=== PATIENT | female | born 1960 | race Caucasian/White ===

== ENCOUNTER 2018-01-27 12:09 | Emergency (ER) | payer BC, OTHER ==
[2018-01-27 13:27] VITALS: BP 109/58
--- NOTE | 2018-01-27 13:32 | ED ---
Complex/Multi-Sys Presentation - HPI Summary HPI Summary: This is azucena Barraza documenting for attending Antonella Roblero M.D. This patient is a 58 year old F presenting to [facility] accompanied by coworker at [facility] with a chief complaint of possible CuCN exposure since 814 today. 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 Pt entered apartment and found a man who had poisoned himself with copper cyanide in the apartment, and this patient worries about possible illness or adverse effects from possible exposure to the copper cyanide. Pt did not touch the suicide patient. [place] [employer] was also present at the apartment with [place] police and [employer] determined that the suicide pt was safe to enter [facility] without prior decontamination based on the substances recovered in the apartment that this pt owns and entered. This Pt denies any current sx. She denies nausea, SALVADOR, vision changes, emesis, dizziness. FHx: hereditary spherocytosis. PMHx splenectomy, hereditary spherocytosis. - History Of Current Complaint Chief Complaint: EDExposureBodyFluid Time Seen by Provider: 01/27/18 12:41 Hx Obtained From: Patient, Other: - [place] [employer], poison control Onset/Duration: Sudden Onset, Lasting Minutes Timing: Constant, Minutes Severity Currently: None Severity Initially: Mild - not mild, none Location: Negative Aggravating Factor(s): Possible CuCN exposure Alleviating Factor(s): nothing Associated Signs And Symptoms: Negative: Dizziness, Headache, Nausea, Vomiting - Allergies/Home Medications Allergies/Adverse Reactions: Allergies Allergy/AdvReac Type Severity Reaction Status Date / Time No Known Allergies Allergy Verified 06/03/16 10:23 Home Medications: Home Medications ValACYclovir (*) [Valtrex 500 mg (*)] 500 mg PO DAILY 01/27/18 [History Confirmed 01/27/18] PMH/Surg Hx/FS Hx/Imm Hx Endocrine/Hematology History: Reports: Hx Blood Disorders - hereditary spherocytosis Denies: Hx Sickle Cell Disease History: Denies: Hx Dialysis Sensory History: Denies: Hx Legally Blind, Hx Deafness Opthamlomology History: Denies: Hx Legally Blind EENT History: Denies: Hx Deafness - Cancer History Hx Chemotherapy: No Hx Radiation Therapy: No - Surgical History Surgery Procedure, Year, and Place: splenectomy for hereditary spherocytosis Infectious Disease History: No Infectious Disease History: Denies: Traveled Outside the [place] in Last 30 Days - Family History Known Family History: Positive: Blood Disorder - hereditary spherocytosis, Other - colon cancer - Social History Occupation: Employed Full-time Alcohol Use: Occasionally Substance Use Type: Reports: None Smoking Status (MU): Never Smoked Tobacco Review of Systems Negative: Fever Negative: Photophobia, Blurred Vision Cardiovascular: Negative Respiratory: Negative Negative: Vomiting, Nausea Positive: no symptoms reported Skin: Negative Neurological: Other - NEGATIVE: dizziness Negative: Headache Psychological: Normal All Other Systems Reviewed And Are Negative: Yes Physical Exam - Summary Physical Exam Summary: Appearance: Well-appearing, no pain distress, well-nourished Skin: Warm, color reflects adequate perfusion, dry Head: Normal Head/Face inspection, atraumatic Eyes: Conjunctiva clear ENT: Normal inspection Neck: Supple, no nodes, no JVD Respiratory: Lungs clear, normal breath sounds, no respiratory distress Cardio: RRR, No murmur, pulses normal, brisk capillary refill Abdomen: Soft, nontender Bowel sounds: Present Musculoskeletal: Strength Intact/ROM intact, no calf tenderness, no edema. Psychological: Normal Neuro: Alert, muscle tone normal, no focal deficit Triage Information Reviewed: Yes Vital Signs On Initial Exam: Initial Vitals Temp Pulse Resp BP Pulse Ox 98 F 62 16 104/48 98 01/27/18 12:37 01/27/18 12:37 01/27/18 12:37 01/27/18 12:37 01/27/18 12:37 Vital Signs Reviewed: Yes Diagnostics - Vital Signs Vital Signs Temp Pulse Resp BP Pulse Ox 01/27/18 12:37 98 F 62 16 104/48 98 - Laboratory Lab Statement: Any lab studies that have been ordered have been reviewed, and results considered in the medical decision making process. Complex Multi-Symp Course/Dx Course Of Treatment: 58 yo F s/p splenectomy for hx hereditary spherocytosis ( immunocompromised) presents for evaluation after she entered an apartment that she owns in response to an emergency call from that apartment occupant's mother when there was no response at the door, and she found a man who had ingested what poison control and [place] [employer] determined was copper cyanide. Due to her immunosuppressed status and possible exposure to cyanide, pt sought medical evaluation in this ED. Based on her history and the exam performed in the ED and information from the [place] [employer] who tested substances found in the apartment patient owns and entered, and information from [place] poison control (Smita RN and Dr. Moreno, animal stunner), in conjunction with clinical judgement, it is determined that pt did not have a toxic exposure, and needs no further evaluation or treatment at this time. - Diagnoses Differential Diagnoses/HQI/PQRI: Metabolic Abnormality, Other - toxic exposure to copper cyanide Provider Diagnoses: Normal exam, Exposure to chemical compounds Discharge - Sign-Out/Discharge Documenting (check all that apply): Patient Departure - discharge - Discharge Plan Condition: Stable Disposition: HOME Patient Education Materials: Normal Exam (ED) Referrals: Lulu Hawkins NP [Primary Care Provider] - 1 Day (As needed.) Additional Instructions: Return to the emergency department for any changing or worsening symptoms. - Billing Disposition and Condition Condition: STABLE Disposition: Home
== END 2018-01-27 13:28 | disposition home or self-care (01) ==
LOC: ED 12:09
DX: Z77.29 Contact with and (suspected) exposure to other hazardous substances (principal); D58.0 Hereditary spherocytosis; Z83.2 Family history of diseases of the blood and blood-forming organs and certain disorders involving the immune mechanism
CPT/HCPCS: 99281